=== PATIENT | male | born 1990 | race Caucasian/White ===

== ENCOUNTER 2016-10-13 13:39 | Emergency (ER) | payer BC, OTHER ==
[~2016-10-13] VITALS: Ht 180.3 cm; Wt 110.7 kg
[~2016-10-13 13:39] MED LIST: CPR500T PO; DAPT500V IV; HYDR1TAB8 OP; METR500T PO; ONDA4TAB8 PO; OXYC-471 PO
[2016-10-13 13:54] LABS: BILIRUBIN,URINE NEGATIVE (NEGATIVE); KETONES,URINE NEGATIVE (NEGATIVE); LEUKOCYTE ESTERASE ,URINE NEGATIVE (NEGATIVE); NITRITE,URINE NEGATIVE (NEGATIVE); PH,URINE 6 (5-9); PROTEIN,URINE NEGATIVE (NEGATIVE); UROBILINOGEN,URINE NORMAL (NORMAL)
[2016-10-13] MEDS ORDERED: NS IV 1000 ML 1,000 ML IV ONE (14:04)
--- NOTE | 2016-10-13 14:11 | ED GU-Male ---
General Chief Complaint: -Male Stated Complaint: LEFT FLANK PAIN Nursing Triage Note: PT STATES LT FLANK PAIN RADIATING TO HIS LT TESTICLE. PAIN STARTED 0800 TADAY, NO PAIN ON URINATION. HX OF CHRONIC KIDNEY DISEASE AND KIDNEY STONES. STATES URINATING BLOOD A COUPLE WEEKS AGO AND AGINN YESTERDAY. Source: patient Exam Limitations: no limitations History of Present Illness Time seen by provider: 13:55 Initial Comments Here with pain to the left flank radiating towards his left testicle. Denies testicular swelling or dysuria. Does note that he had some blood in his urine couple weeks ago and again yesterday. Reports fever of 101 today. Timing/Duration: week, getting worse Severity/Quality: moderate, sharp Location: left flank Radiation: groin, scrotal Activities at Onset: none Prior Genitourinary Problems: none Associated Symptoms: No abdominal pain, No dysuria, fever/chillsNo lumps, No nausea/vomiting, No swelling, No urinary frequency Allergies and Home Medications Allergies Coded Allergies: No Known Drug Allergies (Unverified , 05/06/11) Constitutional: see HPINo chills, No fever EENTM: no symptoms reported Respiratory: no symptoms reported Cardiovascular: no symptoms reported Gastrointestinal: see HPINo nausea, No vomiting Genitourinary: see HPI flank pain hematuria pain Musculoskeletal: no symptoms reported Skin: no symptoms reported All Other Systemes Reviewed Negative Unless Noted: Yes Past Gnpvtgf-Dtbjmn-Swkctg Hx Patient Social History Alcohol Use: Denies Use Recreational Drug Use: No Smoking Status: Never a Smoker Former Smoker/When Quit: Nov 10, 2014 Recent Foreign Travel: No Contact w/Someone Who Travel: No Recent Infectious Disease Expo: No Recent Hopitalizations: No Surgeries HX Surgeries: No Respiratory Hx Respiratory Disorders: No Cardiovascular Hx Cardiac Disorders: No Neurological Hx Neurological Disorders: No Genitourinary Hx Genitourinary Disorders: Yes Genitourinary Disorders: Kidney Stones Gastrointestinal Hx Gastrointestinal Disorders: No Musculoskeletal Hx Musculoskeletal Disorders: No Endocrine Hx Endocrine Disorders: No HEENT HX ENT Disorders: No Cancer Hx Cancer: No Psychosocial Hx Psychiatric Problems: No Integumentary HX Skin/Integumentary Disorder: No Blood Transfusions Hx Blood Disorders: No Reviewed Nursing Assessment Reviewed/Agree w Nursing PMH: Yes Family Medical History Significant Family History: No Pertinent Family Hx Physical Exam Vital Signs Vital Sign - Last 12Hours 10/13/16 13:47 Temp 98.9 Pulse 103 Resp 20 B/P 147/88 Pulse Ox 98 O2 Delivery Room Air Capillary Refill : Less Than 3 Seconds General Appearance: WD/WN no apparent distress Neck: full range of motion supple Cardiovascular: regular rate, rhythm no murmur Respiratory: lungs clear normal breath sounds Gastrointestinal: non tender soft Male: normal genitalia no herniaNo erythema, No testicular tenderness Genital/Rectal: No blood at urethral meatus Back: normal inspection no CVA tenderness no vertebral tenderness Extremities: non-tender normal inspection Neurologic/Psychiatric: alert oriented x 3 Skin: normal color warm/dry Progress/Results/Core Measures Results/Orders Lab Results Laboratory Tests Test 10/13/16 13:45 10/13/16 14:00 Range/Units Urine Bacteria NEGATIVE /HPF Urine Bilirubin NEGATIVE NEGATIVE Urine Casts NONE /LPF Urine Clarity CLEAR Urine Color YELLOW Urine Crystals NONE /LPF Urine Culture Indicated NO Urine Glucose (UA) NEGATIVE NEGATIVE Urine Ketones NEGATIVE NEGATIVE Urine Leukocyte Esterase NEGATIVE NEGATIVE Urine Mucus NEGATIVE /LPF Urine Nitrite NEGATIVE NEGATIVE Urine Protein NEGATIVE NEGATIVE Urine RBC 0-2 /HPF Urine RBC (Auto) 3+ H NEGATIVE Urine Specific [place] 1.010 L 1.016-1.022 Urine Squamous Epithelial Cells NONE /HPF Urine Urobilinogen NORMAL NORMAL MG/DL Urine WBC NONE /HPF Urine pH 6 5-9 Alanine Aminotransferase (ALT/SGPT) 126 H 0-55 U/L Albumin 4.8 H 3.2-4.5 G/DL Alkaline Phosphatase 119 40-136 U/L Anion Gap 10 5-14 MMOL/L Aspartate Amino Transf (AST/SGOT) 46 H 5-34 U/L BUN/Creatinine Ratio 13 Basophils # (Auto) 0.0 0.0-0.1 10^3/uL Basophils (%) (Auto) 0 0-10 % Blood Urea Nitrogen 15 7-18 MG/DL Calcium Level 9.8 8.5-10.1 MG/DL Carbon Dioxide Level 24 21-32 MMOL/L Chloride Level 106 98-107 MMOL/L Creatinine 1.20 0.60-1.30 MG/DL Eosinophils # (Auto) 0.2 0.0-0.3 10^3/uL Eosinophils (%) (Auto) 2 0-10 % Estimat Glomerular Filtration Rate > 60 Glucose Level 114 H 70-105 MG/DL Hematocrit 45 40-54 % Hemoglobin 16.2 13.3-17.7 G/DL Lymphocytes # (Auto) 2.9 1.0-4.0 X 10^3 Lymphocytes (%) (Auto) 22 12-44 % Mean Corpuscular Hemoglobin 28 25-34 PG Mean Corpuscular Hemoglobin Concent 36 32-36 G/DL Mean Corpuscular Volume 77 L 80-99 FL Mean Platelet Volume 10.2 7.4-10.4 FL Monocytes # (Auto) 0.5 0.0-1.0 X 10^3 Monocytes (%) (Auto) 4 0-12 % Neutrophils # (Auto) 9.6 H 1.8-7.8 X 10^3 Neutrophils (%) (Auto) 73 42-75 % Platelet Count 262 130-400 10^3/uL Potassium Level 3.6 3.6-5.0 MMOL/L Red Blood Count 5.86 H 4.35-5.85 10^6/uL Red Cell Distribution Width 13.0 10.0-14.5 % Sodium Level 140 135-145 MMOL/L Total Bilirubin 0.8 0.1-1.0 MG/DL Total Protein 7.6 6.4-8.2 G/DL White Blood Count 13.2 H 4.3-11.0 10^3/uL My Orders Orders-DILLON ORNELAS MD Ua Culture If Indicated (10/13/16 13:48) Saline Lock/Iv-Start (10/13/16 14:04) Ns Iv 1000 Ml (Sodium Chloride 0.9%) (10/13/16 14:04) Cbc With Automated Diff (10/13/16 14:04) Comprehensive Metabolic Panel (10/13/16 14:04) Iohexol Injection (Omnipaque 350 Mg/Ml 1 (10/13/16 14:15) Ns (Ivpb) (Sodium Chloride 0.9% Ivpb Bag (10/13/16 14:15) Ct Abd/Pelvis Wo(Kidney Stone) (10/13/16 14:17) Abdomen/Kub 1view (10/13/16 14:52) Medications Given in ED Current Medications Medications Dose Ordered Sig/Tiarra Route Start Time Stop Time Status Last Admin Dose Admin Sodium Chloride 1,000 ml @ 0 mls/hr Q0M ONCE IV 10/13/16 14:04 10/13/16 14:06 DC 10/13/16 14:13 1,000 MLS/HR Vital Signs/I&O Vital Sign - Last 12Hours 10/13/16 13:47 Temp 98.9 Pulse 103 Resp 20 B/P 147/88 Pulse Ox 98 O2 Delivery Room Air Blood Pressure Mean: 107 Progress Note : Progress Note Seen and evaluated. IV, labs, UA and CT vital CT number out of pelvis kidney stone study ordered. CT due to history of previous stones and chronic kidney disease. 1441: Case discussed with Dr. Capellan. I did review all the findings and history as well as CT scan. He will see the patient in his office tomorrow at 1430. KUB ordered. We will initiate outpatient antibiotics and pain meds. All of these findings, concerns in plan of care discussed with patient who agrees with plan. Patient is currently without any significant pain. Discharge home with return precautions. Patient verbalize understanding instructions and agreement with plan. Diagnostic Imaging Diagonstic Imaging: CT Plain Films/CT/US/NM/MRI: abdomen, pelvis Comments VIA [facility]. [place], [place] NAME: ELIAS SHARMA [facility] REC#: [id number] PT STATUS: REG ER : 1990 PHYSICIAN: DILLON ORNELAS MD ADMIT DATE: 10/13/16/ER Draft Date of Exam:10/13/16 CT ABD/PELVIS WO(KIDNEY STONE) PROCEDURE: CT urinary tract, rule out kidney stone. TECHNIQUE: Multiple contiguous axial images were obtained through the abdomen and pelvis without the use of intravenous contrast. INDICATION: Hematuria. Left flank pain. COMPARISON: 05/06/2011 FINDINGS: Included views of the lung bases are clear. CT abdomen: A 5 mm calculus is identified within the proximal left ureter near the UPJ. As a result, there is mild to moderate proximal hydronephrosis. Additional bilateral nonobstructing renal calculi are also seen. No calculi are identified along the course of the right ureter. Additionally, there is no hydroureteronephrosis or other evidence of obstruction on the right. No focal renal mass-type lesions are identified on this noncontrast exam. Liver is diffusely hypodense consistent with background of hepatic steatosis. Otherwise, the liver, spleen, pancreas, and adrenal glands have an unremarkable noncontrast CT appearance. Small bowel loops are nondistended. Normal appendix is identified. There is no loculated fluid collection, free fluid or free air within the abdomen. No abnormal mesenteric or retroperitoneal adenopathy is seen. Bony structures show no acute abnormalities. CT pelvis: Urinary bladder is unopacified. No calculi are seen within the urinary bladder. There is trace free fluid within the lower pelvis. There is no loculated fluid collection or free air. No abnormal adenopathy is seen. Bony structures show no acute abnormalities. IMPRESSION: 1. 5 mm calculus at the left UPJ resulting in mild to moderate proximal hydronephrosis. 2. Multiple additional bilateral nonobstructive renal calculi. 3. Hepatic steatosis. Dictated on workstation # [id number] Dict: 10/13/16 1426 Trans: 10/13/16 1434 [id number] Interpreted by: AIMEE CRUZ Electronically signed by: Reviewed: Reviewed by Nm Diagonstic Imaging: Xray Plain Films/CT/US/NM/MRI: abdomen Comments VIA [facility]. [place], [place] NAME: ELIAS SHARMA [facility] REC#: [id number] PT STATUS: REG ER : 1990 PHYSICIAN: DILLON ORNELAS MD ADMIT DATE: 10/13/16/ER Draft Date of Exam:10/13/16 ABDOMEN/KUB 1VIEW EXAMINATION: KUB. INDICATION: Proximal left ureteric stone. FINDINGS: There is an 8 mm calcification projecting at the left transverse process of L3 level, compatible with the stone seen on concurrent CT scan. The other small stones in the kidneys are well seen. IMPRESSION: An 8 mm proximal left ureteric stone is seen. Dictated on workstation # [id number] Dict: 10/13/16 1518 Trans: 10/13/16 1525 PJE [id number] Interpreted by: YOANA HARTMANN MD Electronically signed by: Departure Impression Impression: Primary Impression: Left ureteral stone Disposition: 01 HOME, SELF-CARE Condition: Stable Departure-Patient Inst. Decision time for Depature: 15:14 Referrals: DEEPTI PERRY DO (PCP/Family) Primary Care Physician MANNY CAPELLAN MD Patient Instructions: Kidney Stones in Adults Add. Discharge Instructions: All discharge instructions reviewed with patient and/or family. Voiced understanding. Drink plenty of fluids. Follow-up with Dr. Capellan tomorrow at 1430 in his office. Take medications as directed. Return for worse pain, fever, vomiting, weakness, breathing problems or other concerns as needed. Scripts Hydrocodone/Acetaminophen (Hydrocodon-Acetaminoph 7.5-325)1 Each Tablet1 Each PO Q6H #14 TAB Prov:DILLON ORNELAS MD 10/13/16 Cephalexin 500 Mg [id number] Mg PO BID #14 TAB Ref 0 Prov:DILLON ORNELAS MD 10/13/16 Copy Copies To 1: MANNY CAPELLAN MD Copies To 2: DEEPTI PERRY TIMOTHY D MD Oct 13, 2016 14:11
[2016-10-13 14:13] LABS: BASOPHILS % (AUTO) 0 % (0-10); EOSINOPHILS # (AUTO) 0.2 10^3/uL (0.0-0.3); EOSINOPHILS % (AUTO) 2 % (0-10); LYMPHOCYTES # (AUTO) 2.9 X 10^3 (1.0-4.0); LYMPHOCYTES % (AUTO) 22 % (12-44); MEAN CORPUSCULAR HEMOGLOBIN 28 PG (25-34); MEAN CORPUSCULAR HGB CONC 36 G/DL (32-36); MEAN CORPUSCULAR VOLUME 77 FL (80-99); MEAN PLATELET VOLUME 10.2 FL (7.4-10.4); MONOCYTES # (AUTO) 0.5 X 10^3 (0.0-1.0); MONOCYTES % (AUTO) 4 % (0-12); NEUTROPHILS # (AUTO) 9.6 X 10^3 (1.8-7.8); NEUTROPHILS % (AUTO) 73 % (42-75); PLATELET COUNT 262 10^3/uL (130-400); RED BLOOD COUNT 5.86 10^6/uL (4.35-5.85); WHITE BLOOD COUNT 13.2 10^3/uL (4.3-11.0)
[2016-10-13] MEDS ORDERED: NS 100 ML (IVPB) BAG IV ONE (14:15)
[2016-10-13] MEDS ORDERED: IOHEXOL 350 MG/ML 100 ML (OMNIPAQUE 350) VIAL IV ONE (14:15)
[2016-10-13 14:32] LABS: ALANINE AMINOTRANSFERASE 126 U/L (0-55); ALBUMIN 4.8 G/DL (3.2-4.5); ANION GAP 10 MMOL/L (5-14); ASPARTATE AMINO TRANSFERASE 46 U/L (5-34); BILIRUBIN,TOTAL 0.8 MG/DL (0.1-1.0); BLOOD UREA NITROGEN 15 MG/DL (7-18); BUN/CREATININE RATIO 13; CALCIUM 9.8 MG/DL (8.5-10.1); CARBON DIOXIDE 24 MMOL/L (21-32); CHLORIDE 106 MMOL/L (98-107); GFR ESTIMATED > 60; GLUCOSE 114 MG/DL (70-105); POTASSIUM 3.6 MMOL/L (3.6-5.0); SODIUM 140 MMOL/L (135-145); TOTAL PROTEIN 7.6 G/DL (6.4-8.2)
--- NOTE | 2016-10-13 14:34 | Diagnostic Imaging Report ---
PROCEDURE: CT urinary tract, rule out kidney stone. TECHNIQUE: Multiple contiguous axial images were obtained through the abdomen and pelvis without the use of intravenous contrast. INDICATION: Hematuria. Left flank pain. COMPARISON: 05/06/2011 FINDINGS: Included views of the lung bases are clear. CT abdomen: A 5 mm calculus is identified within the proximal left ureter near the UPJ. As a result, there is mild to moderate proximal hydronephrosis. Additional bilateral nonobstructing renal calculi are also seen. No calculi are identified along the course of the right ureter. Additionally, there is no hydroureteronephrosis or other evidence of obstruction on the right. No focal renal mass-type lesions are identified on this noncontrast exam. Liver is diffusely hypodense consistent with background of hepatic steatosis. Otherwise, the liver, spleen, pancreas, and adrenal glands have an unremarkable noncontrast CT appearance. Small bowel loops are nondistended. Normal appendix is identified. There is no loculated fluid collection, free fluid or free air within the abdomen. No abnormal mesenteric or retroperitoneal adenopathy is seen. Bony structures show no acute abnormalities. CT pelvis: Urinary bladder is unopacified. No calculi are seen within the urinary bladder. There is trace free fluid within the lower pelvis. There is no loculated fluid collection or free air. No abnormal adenopathy is seen. Bony structures show no acute abnormalities. 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 IMPRESSION: 1. 5 mm calculus at the left UPJ resulting in mild to moderate proximal hydronephrosis. 2. Multiple additional bilateral nonobstructive renal calculi. 3. Hepatic steatosis. Dictated by: Dictated on workstation # [id number]
--- NOTE | 2016-10-13 15:25 | Diagnostic Imaging Report ---
EXAMINATION: KUB. INDICATION: Proximal left ureteric stone. FINDINGS: There is an 8 mm calcification projecting at the left transverse process of L3 level, compatible with the stone seen on concurrent CT scan. The other small stones in the kidneys are well seen. IMPRESSION: An 8 mm proximal left ureteric stone is seen. Dictated by: Dictated on workstation # [id number]
[2016-10-13] MEDS ORDERED: HYDR-3816 PO (15:33)
[2016-10-13] MEDS ORDERED: CEPH500T PO (15:33)
[2016-10-13 15:53] VITALS: BP 140/86
== END 2016-10-13 15:54 | disposition home or self-care (01) ==
LOC: EDUNIT# 13:39 → ER 13:42
DX: N13.2 Hydronephrosis with renal and ureteral calculous obstruction (principal); K76.0 Fatty (change of) liver, not elsewhere classified
CPT/HCPCS: 36415; 74000; 74176; 80053; 81000; 85025; 96360; 96361

== ENCOUNTER 2017-08-10 13:10 | Emergency (ER) | payer BC ==
[~2017-08-10] VITALS: Ht 182.9 cm; Wt 108.9 kg
[~2017-08-10 13:10] MED LIST changes: +CEPH500T PO; +HYDR-3816 PO
--- OUTSIDE RECORDS SUMMARY | 2017-08-10 13:14 | XMS REPORT ---
Author Author MAURICIO DURHAM [facility] eClinicalWorks Address Unknown Phone Unavailable Care Team Providers Care Pepper Picker Name Role Phone MAURICIO DURHAM CP Unavailable Allergies, Adverse Reactions, Alerts Substance Reaction Event Type N.K.D.A. Info Not Available Non Drug Allergy Problems Problem Type Condition Code Onset Dates Condition Status Assessment Right foot pain M79.671 Active Assessment Puncture wound T14.8 Active Problem Esophageal reflux 530.81 Active Assessment Blood pressure elevated without history of HTN R03.0 Active Medications Medication Code System Code Instructions Start Date End Date Status Dosage Clindamycin HCl NDC [address]-34 300 MG Orally every 8 hrs Aug 21, 2015 Aug 28, 2015 1 capsule Ibuprofen NDC 0 not defined Procedures Procedure Coding System Code Date CULTURE, BACTERIA, OTHER CPT-4 66694 Aug 21, 2015 TDAP (BOOSTRIX) CPT-4 33901 Aug 21, 2015 CULTURE BACTERIA ANAEROBIC CPT-4 70497 Aug 21, 2015 Office Visit, Est Pt., Level 4 CPT-4 85989 Aug 21, 2015 SINGLE IMMUNIZATION ADMIN CPT-4 68528 Aug 21, 2015 Vital Signs Date/Time: Aug 21, 2015 Temperature 99.9 F Weight 236 lbs Height 72 in BMI 32.00 Index Blood Pressure Diastolic 100 mmHg Blood Pressure Systolic 142 mmHg Cardiac Monitoring Heart Rate 88 bpm Results No Known Results Immunizations Vaccine Administration Date TDAP (BOOSTRIX) Aug 21, 2015 Summary Purpose eClinicalWorks Submission
--- OUTSIDE RECORDS SUMMARY | 2017-08-10 13:14 | XMS REPORT ---
Author Author MAURICIO DURHAM [facility] eClinicalWorks Address Unknown Phone Unavailable Care Team Providers Care Patent Clerk Name Role Phone MAURICIO DURHAM Unavailable Allergies No Known Allergies Problems Problem Type Condition Code Onset Dates Condition Status Assessment Right foot pain M79.671 Active Problem Esophageal reflux 530.81 Active Medications No Known Medications Procedures Procedure Coding System Code Date X-RAY EXAM OF ANKLE CPT-4 93174 Aug 22, 2015 Results No Known Results Summary Purpose eClinicalWorks Submission
--- OUTSIDE RECORDS SUMMARY | 2017-08-10 13:14 | XMS REPORT ---
Author Author TRE COTO [facility] eClinical[employer] Address Unknown Phone Unavailable Care Team Providers Care Special Agent Name Role Phone TRE COTO CP Unavailable Allergies, Adverse Reactions, Alerts Substance Reaction Event Type N.K.D.A. Info Not Available Non Drug Allergy Problems Problem Type Condition ICD-9 Code Onset Dates Condition Status Problem Acute bronchitis 466.0 Active Problem Esophageal reflux 530.81 Active Problem Influenza with other respiratory manifestations 487.1 Active Problem Colitis, enteritis, and gastroenteritis of presumed infectious origin 009.1 Active Assessment Sinusitis 473.9 Active Problem Benign neoplasm of skin, site unspecified 216.9 Active Problem Contact with or exposure to unspecified communicable disease V01.9 Active Medications Medication Code System Code Instructions Start Date End Date Status Dosage Azithromycin [facility] [address]-63 250 MG Orally Once a day 2 tablets on the first day, then 1 tablet daily for 4 days Procedures Procedure Coding System Code Date Office Visit, Est Pt., Level 3 CPT-4 53029 May 12, 2015 Vital Signs Date/Time: May 12, 2015 Temperature 98.9 F Weight 235 lbs Height 72 in BMI 31.87 Index Blood Pressure Diastolic 70 mmHg Blood Pressure Systolic 130 mmHg Cardiac Monitoring Heart Rate 78 bpm Results No Known Results Summary Purpose eClinicalWorks Submission
--- OUTSIDE RECORDS SUMMARY | 2017-08-10 13:15 | XMS REPORT ---
Author WU Smith [facility] eClinicalWorks Address Unknown Phone Unavailable Care Team Providers Care Cycling Instructor Name Role Phone WU HIDALGO CP Unavailable Allergies, Adverse Reactions, Alerts Substance Reaction Event Type N.K.D.A. Info Not Available Non Drug Allergy Problems Problem Type Condition ICD-9 Code Onset Dates Condition Status Assessment Conjunctivitis, left eye 372.30 Active Problem Esophageal reflux 530.81 Active Medications Medication Code System Code Instructions Start Date End Date Status Dosage Bbvrceuv-Ajtcmxcae-Imdstcam [facility] [address]-61 3.5-19390-4.1 Ophthalmic Four times a day May 17, 2015 1 drop into affected eye Procedures Procedure Coding System Code Date Office Visit, Est Pt., Level 3 CPT-4 17182 May 17, 2015 Vital Signs Date/Time: May 17, 2015 Temperature 98.6 F Weight 240 lbs Height 72 in BMI 32.55 Index Cardiac Monitoring Heart Rate 102 bpm Results No Known Results Summary Purpose eClinicalWorks Submission
[2017-08-10 13:27] VITALS: BP 142/87
--- NOTE | 2017-08-10 13:41 | ED Back Pain ---
General Chief Complaint: Back Problems Stated Complaint: KIDNEY PAIN Nursing Triage Note: PT REPORTS L LOW BACK PAIN. HE STATES HE HAS CHRONIC KIDNEY DX AND HX OF KIDNEY STONES. HE STATES HE HAS HAD THIS PAIN FOR A COUPLE OF MONTHS. HE REPORTS HE THOUGHT HE HAD A KIDNEY STONE AND HAS NOT PASSED IT. HE DENIES N/V OR FEVER. Nursing Sepsis Screen: No Definite Risk Source of Information: Patient Exam Limitations: No Limitations History of Present Illness Time Seen by Provider: 13:38 Initial Comments To ER with reports of left flank pain for 2-3 months. Symptoms are no worse today than they have been at any point he states he finally "just decided to get it looked at. His primary care provider is Dr. MENA but he has not seen her in several years he states. He denies nausea vomiting or fevers. He does report some intermittent dysuria. He does have a history of kidney stones on the left. He also has a history of"chronic kidney disease" who states. He also states this was secondary to septic arthritis in his ankle. Timing/Duration: Other (2-3 months) Severity: Mild Allergies and Home Medications Allergies Coded Allergies: No Known Drug Allergies (Unverified , 05/06/11) Home Medications Cephalexin 500 Mg Tablet, 500 MG PO BID, #14 Ref 0 Prescribed by: DILLON ORNELAS on 10/13/16 1533 Hydrocodone/Acetaminophen 1 Each Tablet, 1 EACH PO Q6H, #14 Prescribed by: DILLON ORNELAS on 10/13/16 1533 Constitutional: see HPI EENTM: see HPI Respiratory: no symptoms reported Cardiovascular: no symptoms reported Genitourinary: no symptoms reported Musculoskeletal: no symptoms reported Skin: no symptoms reported Psychiatric/Neurological: No Symptoms Reported Past Xaeywko-Vcgzis-Jubdha Hx Patient Social History Alcohol Use: Denies Use Recreational Drug Use: No Smoking Status: Never a Smoker 2nd Hand Smoke Exposure: No Recent Foreign Travel: No Contact w/Someone Who Travel: No Recent Infectious Disease Expo: No Recent Hopitalizations: No Physical Abuse: No Sexual Abuse: No Seasonal Allergies Seasonal Allergies: No Surgeries History of Surgeries: Yes (WISDOM TEETH) Surgeries: Orthopedic Respiratory History of Respiratory Disorde: No Cardiovascular History of Cardiac Disorders: No Neurological History of Neurological Disord: No Genitourinary History of Genitourinary Disor: Yes (CHRONIC KIDNEY DISEASE) Genitourinary Disorders: Kidney Stones Gastrointestinal History of Gastrointestinal Di: No Musculoskeletal History of Musculoskeletal Dis: No Endocrine History of Endocrine Disorders: No Cancer History of Cancer: No Psychosocial History of Psychiatric Problem: No Suicide Risk Score: 0 Integumentary History of Skin or Integumenta: No Blood Transfusions History of Blood Disorders: No Family Medical History Significant Family History: No Pertinent Family Hx Physical Exam Vital Signs Vital Sign - Last 12Hours 08/10/17 13:27 Temp 98.9 Pulse 75 Resp 16 B/P (MAP) 142/87 Pulse Ox 99 O2 Delivery Room Air Capillary Refill : Less Than 3 Seconds General Appearance: No Apparent Distress, WD/WN HEENT: PERRL/EOMI, TMs Normal Neck: Full Range of Motion, Normal Inspection Respiratory: No Accessory Muscle Use, No Respiratory Distress Gastrointestinal: Normal Bowel Sounds, Non Tender, Soft Back: CVA Tenderness (L) Extremity: Normal Capillary Refill, Normal Inspection Neurologic/Psychiatric: Alert, Oriented x3, No Motor/Sensory Deficits Skin: Normal Color, Warm/Dry Progress/Results/Core Measures Results/Orders Lab Results Laboratory Tests Test 08/10/17 13:28 08/10/17 13:45 Range/Units Urine Color YELLOW Urine Clarity CLEAR Urine pH 6 5-9 Urine Specific [place] 1.020 1.016-1.022 Urine Protein NEGATIVE NEGATIVE Urine Glucose (UA) NEGATIVE NEGATIVE Urine Ketones NEGATIVE NEGATIVE Urine Nitrite NEGATIVE NEGATIVE Urine Bilirubin NEGATIVE NEGATIVE Urine Urobilinogen NORMAL NORMAL MG/DL Urine Leukocyte Esterase NEGATIVE NEGATIVE Urine RBC (Auto) NEGATIVE NEGATIVE Urine RBC NONE /HPF Urine WBC NONE /HPF Urine Squamous Epithelial Cells RARE /HPF Urine Crystals NONE /LPF Urine Bacteria NEGATIVE /HPF Urine Casts NONE /LPF Urine Mucus NEGATIVE /LPF Urine Culture Indicated NO White Blood Count 13.5 H 4.3-11.0 10^3/uL Red Blood Count 5.71 4.35-5.85 10^6/uL Hemoglobin 15.9 13.3-17.7 G/DL Hematocrit 45 40-54 % Mean Corpuscular Volume 78 L 80-99 FL Mean Corpuscular Hemoglobin 28 25-34 PG Mean Corpuscular Hemoglobin Concent 36 32-36 G/DL Red Cell Distribution Width 13.1 10.0-14.5 % Platelet Count 249 130-400 10^3/uL Mean Platelet Volume 10.1 7.4-10.4 FL Neutrophils (%) (Auto) 60 42-75 % Lymphocytes (%) (Auto) 29 12-44 % Monocytes (%) (Auto) 8 0-12 % Eosinophils (%) (Auto) 3 0-10 % Basophils (%) (Auto) 0 0-10 % Neutrophils # (Auto) 8.1 H 1.8-7.8 X 10^3 Lymphocytes # (Auto) 4.0 1.0-4.0 X 10^3 Monocytes # (Auto) 1.0 0.0-1.0 X 10^3 Eosinophils # (Auto) 0.4 H 0.0-0.3 10^3/uL Basophils # (Auto) 0.0 0.0-0.1 10^3/uL Sodium Level 140 135-145 MMOL/L Potassium Level 4.2 3.6-5.0 MMOL/L Chloride Level 105 98-107 MMOL/L Carbon Dioxide Level 27 21-32 MMOL/L Anion Gap 8 5-14 MMOL/L Blood Urea Nitrogen 14 7-18 MG/DL Creatinine 0.99 0.60-1.30 MG/DL Estimat Glomerular Filtration Rate > 60 BUN/Creatinine Ratio 14 Glucose Level 86 70-105 MG/DL Calcium Level 10.2 H 8.5-10.1 MG/DL Total Bilirubin 0.7 0.1-1.0 MG/DL Aspartate Amino Transf (AST/SGOT) 37 H 5-34 U/L Alanine Aminotransferase (ALT/SGPT) 114 H 0-55 U/L Alkaline Phosphatase 109 40-136 U/L Total Protein 7.6 6.4-8.2 GM/DL Albumin 4.5 3.2-4.5 GM/DL My Orders Orders - TIFFANIE HORVATH FLOOR GR[employer]ER Cbc With Automated Diff (08/10/17 13:38) Comprehensive Metabolic Panel (08/10/17 13:38) Ua Culture If Indicated (08/10/17 13:38) Ct Abd/Pelvis Wo(Kidney Stone) (08/10/17 13:38) Vital Signs/I&O Vital Sign - Last 12Hours 08/10/17 13:27 Temp 98.9 Pulse 75 Resp 16 B/P (MAP) 142/87 Pulse Ox 99 O2 Delivery Room Air Blood Pressure Mean: 105 Diagnostic Imaging Diagonstic Imaging: CT Comments NAME: ELIAS SHARMA [facility] REC#: [id number] PT STATUS: REG ER : 1990 PHYSICIAN: TIFFANIE HORVATH APRN ADMIT DATE: 08/10/17/ER Draft Date of Exam:08/10/17 CT ABD/PELVIS WO(KIDNEY STONE) PROCEDURE: CT urinary tract, rule out kidney stone. TECHNIQUE: Multiple contiguous axial images were obtained through the abdomen and pelvis without the use of intravenous contrast. INDICATION: Left flank pain. FINDINGS: Lung bases are clear. There is fatty infiltration of the liver. The gallbladder is present. Spleen appears normal. Pancreas appears normal. Adrenals appear normal. There is a 1 mm calculus in the inferior pole calyx of left kidney. There are several small calculi in the right kidney in the interpolar and lower pole calyces. There is no hydronephrosis. The ureters are not dilated. Urinary bladder appears normal. The appendix appears normal. Small bowel is not dilated. Colon appears grossly normal. IMPRESSION: Bilateral nephrolithiasis but no evidence of ureteral calculus or obstruction. Hepatic steatosis. Dictated on workstation # [id number] Dict: 08/10/17 1417 Trans: 08/10/17 1425 [id number] Interpreted by: DILLON SPARKS MD Electronically signed by: Departure Impression Impression: Primary Impression: Left flank pain Disposition: 01 HOME, SELF-CARE Condition: Stable Departure-Patient Inst. Decision time for Depature: 14:27 Referrals: DEEPTI MENA DO (PCP/Family) Primary Care Physician Patient Instructions: Flank Pain Add. Discharge Instructions: 1. Follow-up with Dr. Mena. Call today to make an appointment 2. Return to ER for any concerns 3. All discharge instructions reviewed with patient and/or family. Voiced understanding. Copy Copies To 1: DEEPTI MENA PETER J APRN Aug 10, 2017 13:41
[2017-08-10 13:54] LABS: BILIRUBIN,URINE NEGATIVE (NEGATIVE); KETONES,URINE NEGATIVE (NEGATIVE); LEUKOCYTE ESTERASE ,URINE NEGATIVE (NEGATIVE); NITRITE,URINE NEGATIVE (NEGATIVE); PH,URINE 6 (5-9); PROTEIN,URINE NEGATIVE (NEGATIVE); UROBILINOGEN,URINE NORMAL (NORMAL)
[2017-08-10 13:55] LABS: BASOPHILS % (AUTO) 0 % (0-10); EOSINOPHILS # (AUTO) 0.4 10^3/uL (0.0-0.3); EOSINOPHILS % (AUTO) 3 % (0-10); LYMPHOCYTES % (AUTO) 29 % (12-44); MEAN CORPUSCULAR HEMOGLOBIN 28 PG (25-34); MEAN CORPUSCULAR HGB CONC 36 G/DL (32-36); MEAN CORPUSCULAR VOLUME 78 FL (80-99); MEAN PLATELET VOLUME 10.1 FL (7.4-10.4); MONOCYTES % (AUTO) 8 % (0-12); NEUTROPHILS # (AUTO) 8.1 X 10^3 (1.8-7.8); NEUTROPHILS % (AUTO) 60 % (42-75); PLATELET COUNT 249 10^3/uL (130-400); RED BLOOD COUNT 5.71 10^6/uL (4.35-5.85); RED CELL DISTRIBUTION WIDTH 13.1 % (10.0-14.5); WHITE BLOOD COUNT 13.5 10^3/uL (4.3-11.0)
[2017-08-10 14:12] LABS: SQUAMOUS EPITHELIAL CELL,UR RARE /HPF
[2017-08-10 14:16] LABS: ALANINE AMINOTRANSFERASE 114 U/L (0-55); ALBUMIN 4.5 GM/DL (3.2-4.5); ANION GAP 8 MMOL/L (5-14); ASPARTATE AMINO TRANSFERASE 37 U/L (5-34); BILIRUBIN,TOTAL 0.7 MG/DL (0.1-1.0); BLOOD UREA NITROGEN 14 MG/DL (7-18); BUN/CREATININE RATIO 14; CALCIUM 10.2 MG/DL (8.5-10.1); CARBON DIOXIDE 27 MMOL/L (21-32); CHLORIDE 105 MMOL/L (98-107); CREATININE SERUM 0.99 MG/DL (0.60-1.30); GFR ESTIMATED > 60; GLUCOSE 86 MG/DL (70-105); POTASSIUM 4.2 MMOL/L (3.6-5.0); SODIUM 140 MMOL/L (135-145); TOTAL PROTEIN 7.6 GM/DL (6.4-8.2)
--- NOTE | 2017-08-10 14:25 | Diagnostic Imaging Report ---
PROCEDURE: CT urinary tract, rule out kidney stone. TECHNIQUE: Multiple contiguous axial images were obtained through the abdomen and pelvis without the use of intravenous contrast. INDICATION: Left flank pain. FINDINGS: Lung bases are clear. There is fatty infiltration of the liver. The gallbladder is present. Spleen appears normal. Pancreas appears normal. Adrenals appear normal. There is a 1 mm calculus in the inferior pole calyx of left kidney. There are several small calculi in the right kidney in the interpolar and lower pole calyces. There is no hydronephrosis. The ureters are not dilated. Urinary bladder appears normal. The appendix appears normal. Small bowel is not dilated. Colon appears grossly normal. IMPRESSION: Bilateral nephrolithiasis but no evidence of ureteral calculus or obstruction. Hepatic steatosis. Dictated by: Dictated on workstation # [id number]
== END 2017-08-10 14:30 | disposition home or self-care (01) ==
LOC: EDUNIT# 13:10 → ER 13:11
DX: R10.9 Unspecified abdominal pain (principal); N18.9 Chronic kidney disease, unspecified; Z87.442 Personal history of urinary calculi
CPT/HCPCS: 36415; 74176; 80053; 81000; 85025; 99283

== ENCOUNTER → 2018-11-06 | Outpatient (CLI) | payer SELFPAY ==
[~2018-11-06] MED LIST changes: +ACET-2267 PO; +ACHD5005 PO; +HYDR-34 PO; -HYDR-3816 PO; +LEVO500T80; +SULF-222 PO
[2018-11-06 13:01] LABS: BASOPHILS % (AUTO) 0 % (0-10); EOSINOPHILS % (AUTO) 0 % (0-10); HEMATOCRIT 45 % (40-54); LYMPHOCYTES # (AUTO) 4.2 X 10^3 (1.0-4.0); LYMPHOCYTES % (AUTO) 16 % (12-44); MEAN CORPUSCULAR HEMOGLOBIN 28 PG (25-34); MEAN CORPUSCULAR HGB CONC 36 G/DL (32-36); MEAN CORPUSCULAR VOLUME 79 FL (80-99); MEAN PLATELET VOLUME 9.8 FL (7.4-10.4); MONOCYTES # (AUTO) 1.7 X 10^3 (0.0-1.0); MONOCYTES % (AUTO) 7 % (0-12); NEUTROPHILS # (AUTO) 19.8 X 10^3 (1.8-7.8); NEUTROPHILS % (AUTO) 77 % (42-75); PLATELET COUNT 224 10^3/uL (130-400); RED CELL DISTRIBUTION WIDTH 13.4 % (10.0-14.5); WHITE BLOOD COUNT 25.6 10^3/uL (4.3-11.0)
[2018-11-06 13:23] LABS: ALANINE AMINOTRANSFERASE 62 U/L (0-55); ALBUMIN 4.7 GM/DL (3.2-4.5); ALKALINE PHOSPHATASE 89 U/L (40-136); BILIRUBIN,TOTAL 2.1 MG/DL (0.1-1.0); BUN/CREATININE RATIO 9; CALCIUM 10.6 MG/DL (8.5-10.1); CARBON DIOXIDE 27 MMOL/L (21-32); CHLORIDE 102 MMOL/L (98-107); CREATININE SERUM 1.22 MG/DL (0.60-1.30); GFR ESTIMATED > 60; GLUCOSE 117 MG/DL (70-105); SODIUM 138 MMOL/L (135-145); TOTAL PROTEIN 7.8 GM/DL (6.4-8.2)
--- NOTE | 2018-11-06 13:41 | Diagnostic Imaging Report ---
INDICATION: Right knee pain and swelling. TECHNIQUE: AP, oblique, and lateral views of the right knee are obtained. FINDINGS: No fracture or acute bony abnormality is seen. There is a questionable joint effusion. Medial and lateral compartments appear unremarkable. IMPRESSION: No acute fracture or acute bony abnormality. Question joint effusion. Dictated by: Dictated on workstation # [id number]
[2018-11-06 13:49] LABS: BAND NEUTROPHILS 6 %; BASOPHILS % (MANUAL) 0 %; EOSINOPHILS % (MANUAL) 0 %; LYMPHOCYTES % (MANUAL) 20 %; MICROCYTOSIS SLIGHT; MONOCYTES % (MANUAL) 4 %; NEUTROPHILS % (MANUAL) 70 %
[2018-11-06 14:07] LABS: ERYTHROCYTE SEDIMENTATION RATE 1 MM/HR (0-15)
== END ==
LOC: RAD 12:40
PROVIDERS: ATTEND Pediatrics
DX: M25.461 Effusion, right knee (principal)
CPT/HCPCS: 36415; 73562; 80053; 85007; 85027; 85652

== ENCOUNTER 2018-11-07 10:06 | Emergency (ER) | payer OTHER ==
[~2018-11-07] VITALS: Ht 182.9 cm; Wt 108.9 kg
[~2018-11-07 10:06] MED LIST changes: -ACET-2267 PO; -ACHD5005 PO; -LEVO500T80; -SULF-222 PO
[2018-11-07] MEDS ORDERED: LEVO500T80 (10:58)
[2018-11-07] MEDS ORDERED: ACET-2267 PO (10:58)
[2018-11-07] MEDS ORDERED: NS IV 1000 ML 1,000 ML IV ONE (11:04)
[2018-11-07] MEDS ORDERED: IBUPROFEN 800 MG (MOTRIN) TAB PO STA (11:04)
--- NOTE | 2018-11-07 11:13 | ED General ---
General Chief Complaint: Lower Extremity Stated Complaint: KNEE SWELLING;PAIN Nursing Triage Note: PT PRESENTS TO ED WITH COMPLAINTS OF R KNEE PAIN, SWELLING, INTERMITTENT FEVER SINCE Tuesday11/05/18. Nursing Sepsis Screen: Possible Sepsis Risk Source of Information: Patient Exam Limitations: No Limitations (MINDI SAMUEL STUDENT) Source of Information: Patient Exam Limitations: No Limitations (DILLON ORNELAS MD) History of Present Illness Date Seen by Provider: Nov 07, 2018 Time Seen by Provider: 10:41 Initial Comments 28 y/o M presented for right knee pain and redness that started on Tuesday without injury. He was seen at urgent care yesterday and they karina labs, did an x-ray, and started him on levofloxacin. He took 1 dose of the levo yesterday. His labs came back today and showed a WBC count of 25,000 so the urgent care called him to have him come be seen at the ED. Since yesterday, the knee has had increased redness, pain, and swelling. He also had fever of 102 F and chills last night, which resolved with Tylenol but would return. He is taking 500mg Tylenol every 6 hours. He is also nauseated but denies vomiting and diarrhea. He has not eaten due to the nausea but is staying hydrated. He has had a septic right ankle 3 years ago following a trauma. Timing/Duration: 2-3 Days, Getting Worse Severity: Moderate, Severe Modifying Factors: worse with Movement Associated Systoms: No Chest Pain; Diaphoresis, Fever/Chills; No Malaise; Nausea/Vomiting; No Shortness of Air; Other (right knee swelling, redness, and pain) (MINDI SAMUEL STUDENT) Initial Comments Reports that he did have a scrape to the anterior knee just below the patella a week ago but that. Did not become inflamed. Noted that swelling and pain is worsened and then was seen yesterday. Did have labs drawn which showed an elevated white count. He was sent over here due to concerns about septic arthritis. Does have history of septic ankle at the same leg. Timing/Duration: 2-3 Days, Getting Worse Severity: Moderate, Severe Modifying Factors: improves with Immobilization, improves with Movement Associated Systoms: No Chest Pain; Nausea/Vomiting; No Shortness of Air, No Weakness (DILLON ORNELAS MD) Allergies and Home Medications Allergies Coded Allergies: No Known Drug Allergies (Unverified , 05/06/11) Home Medications Acetaminophen 500 Mg Tablet, 500 MG PO Q6H, (Reported) Hydrocodone Bit/Acetaminophen 1 Tab Tab, 1 EACH PO Q4-6HR PRN for PAIN-MODERATE Prescribed by: DILLON ORNELAS on 11/07/18 1451 Sulfamethoxazole/Trimethoprim 1 Each Tablet, 1 EACH PO BID Prescribed by: DILLON ORNELAS on 11/07/18 1451 Patient Home Medication List Home Medication List Reviewed: Yes (MINDI SAMUEL STUDENT) Home Medication List Reviewed: Yes (DILLON ORNELAS MD) Review of Systems Review of Systems Constitutional: chills, diaphoresis, fever; No malaise EENTM: no symptoms reported Respiratory: No cough, No short of breath Cardiovascular: No chest pain, No palpitations Gastrointestinal: No abdominal pain, No constipation, No diarrhea; nausea; No vomiting Genitourinary: No dysuria, No frequency Musculoskeletal: joint pain (right knee), joint swelling (right knee ); No muscle stiffness, No muscle weakness Skin: change in color (redness of the right knee); No lesions, No lumps (MINDI MCCRAY STUDENT) Constitutional: see HPI; No chills; fever EENTM: no symptoms reported Respiratory: no symptoms reported Cardiovascular: no symptoms reported Gastrointestinal: No abdominal pain, No nausea, No vomiting Genitourinary: no symptoms reported Musculoskeletal: joint pain, joint swelling, muscle pain Skin: see HPI, change in color, lesions (DILLON ORNELAS MD) All Other Systems Reviewed Negative Unless Noted: Yes (DILLON ORNELAS MD) Past Bmsgovn-Mohbge-Fhsnmr Hx Past Med/Social Hx: Reviewed Nursing Past Med/Soc Hx (MINDI SAMUEL STUDENT) Past Med/Social Hx: Reviewed Nursing Past Med/Soc Hx (DILLON ORNELAS MD) Patient Social History Alcohol Use: Denies Use Recreational Drug Use: No Smoking Status: Never a Smoker 2nd Hand Smoke Exposure: No Recent Foreign Travel: No Contact w/Someone Who Travel: No Recent Infectious Disease Expo: No Recent Hopitalizations: No Physical Abuse: No Sexual Abuse: No Mistreated: No Fear: No (MINDI SAMUEL) Seasonal Allergies Seasonal Allergies: No (MINDI SAMUEL) Past Medical History Surgeries: Yes (WISDOM TEETH, SEPTIC ANKLE JOINT) Orthopedic Respiratory: No Cardiac: No Neurological: No Genitourinary: Yes (CHRONIC KIDNEY DISEASE) Kidney Stones Gastrointestinal: No Musculoskeletal: Yes (HX OF SEPTIC ARTHRITIS IN RT ANKLE) Arthritis Endocrine: No Cancer: No Psychosocial: No Integumentary: No Blood Disorders: No (MINDI SAMUEL) Surgeries: Yes Orthopedic (DILLON ORNELAS MD) Family Medical History Reviewed Nursing Family Hx (MINDI SAMUEL) Reviewed Nursing Family Hx (DILLON ORNELAS MD) No Pertinent Family Hx (MINDI SAMUEL) Physical Exam-Suspected Sepsis Physical Exam Vital Signs Vital Signs - First Documented 11/07/18 10:14 Temp 97.3 Pulse 102 Resp 20 B/P (MAP) 147/91 (109) Pulse Ox 97 O2 Delivery Room Air (DILLON ORNELAS MD) Vital Signs Capillary Refill : Less Than 3 Seconds (MINDI SAMUEL) Blood Pressure Mean: 109 Height, Weight, BMI Height: 6'0" Weight: 240lbs. 0oz. [id number]; 34.03 BMI Method:Stated General Appearance: No Apparent Distress, WD/WN Eyes: Bilateral Eye Normal Inspection, Bilateral Eye PERRL, Bilateral Eye EOMI HEENT: PERRL/EOMI, TMs Normal, Normal ENT Inspection, Pharynx Normal Neck: Full Range of Motion, Normal Inspection, Non Tender, Supple Respiratory: Chest Non Tender, Lungs Clear, Normal Breath Sounds, No Accessory Muscle Use, No Respiratory Distress Cardiovascular: Regular Rate, Rhythm, No Edema, No Murmur, Normal Peripheral Pulses Gastrointestinal: Normal Bowel Sounds, Non Tender, Soft Back: Normal Inspection, No CVA Tenderness, No Vertebral Tenderness Extremity: Normal Capillary Refill, No Calf Tenderness, No Pedal Edema, Inflammation (of right knee), Other Neurologic/Psychiatric: Alert, Oriented x3, No Motor/Sensory Deficits, Normal Mood/Affect Skin: other (warmth and erythema right knee extending up into the medial thigh , posterior knee, and down onto anterior ramos) (RADHA-BIECHLER,MINDI K STUDENT) General Appearance: No Apparent Distress, WD/WN HEENT: PERRL/EOMI, Pharynx Normal Neck: Non Tender, Supple Respiratory: Lungs Clear, Normal Breath Sounds Cardiovascular: No Murmur, Tachycardia Gastrointestinal: Non Tender, Soft Back: Normal Inspection, No CVA Tenderness, No Vertebral Tenderness Extremity: Normal Capillary Refill, Inflammation (of right knee), Other (leg above and below the right knee is red and edematous) Neurologic/Psychiatric: Alert, Oriented x3 Skin: warm/dry, other (warmth and erythema right knee extending up into the medial thigh, posterior knee, and down onto anterior ramos. Skin marker used to do note erythema areas) (DILLON ORNELAS MD) Focused Exam Lactate Level 11/07/18 10:33: Lactic Acid Level 1.31 (DILLON ORNELAS MD) Lactic Acid Level (DILLON ORNELAS MD) Procedures/Interventions Additional Procedures: Arthrocentesis Aspirating Progress Right knee arthrocentesis is indicated due to concerns of septic arthritis of the right knee. Verbal Consent obtained after risks and benefits discussed. Prepped With Betadine and draped with sterile towels. Anesthetized with 2% lidocaine with epinephrine to joint space to the medial aspect of the right knee. Approximately 5 mL injected in area. 18-gauge needle on a 10 mL syringe used to access joint space. Aspiration done but unable to obtain synovial fluid. Attempted in 3 locations without aspiration obtained. Procedure ended without fluid aspiration. Patient tolerated procedure well with no complications although dry tap. (DILLON ORNELAS MD) Progress/Results/Core Measures Suspected Sepsis Recent Fever Within 48 Hours: Yes Infection Criteria Present: Suspected New Infection New/Unexplained Altered Menta: No Sepsis Screen: Possible Sepsis Risk SIRS Temperature:97.3 Pulse: 102 Respiratory Rate: 20 Laboratory Tests 11/07/18 10:33: White Blood Count 28.6H Blood Pressure 147 /91 Mean: 109 11/07/18 10:33: Lactic Acid Level 1.31 Laboratory Tests 11/07/18 10:33: Creatinine 1.14, INR Comment 1.1, Platelet Count 231, Total Bilirubin 1.6H (MINDI SAMUEL STUDENT) Results/Orders Lab Results Laboratory Tests Test 11/07/18 10:32 11/07/18 10:33 11/07/18 14:01 Range/Units Erythrocyte Sedimentation Rate 5 0-15 MM/HR C-Reactive Protein High Sensitivity 26.29 H 0.00-0.50 MG/DL White Blood Count 28.6 H 4.3-11.0 10^3/uL Red Blood Count 5.60 4.35-5.85 10^6/uL Hemoglobin 15.6 13.3-17.7 G/DL Hematocrit 44 40-54 % Mean Corpuscular Volume 79 L 80-99 FL Mean Corpuscular Hemoglobin 28 25-34 PG Mean Corpuscular Hemoglobin Concent 35 32-36 G/DL Red Cell Distribution Width 13.4 10.0-14.5 % Platelet Count 231 130-400 10^3/uL Mean Platelet Volume 10.8 H 7.4-10.4 FL Neutrophils (%) (Auto) 79 H 42-75 % Lymphocytes (%) (Auto) 14 12-44 % Monocytes (%) (Auto) 7 0-12 % Eosinophils (%) (Auto) 0 0-10 % Basophils (%) (Auto) 0 0-10 % Neutrophils # (Auto) 22.4 H 1.8-7.8 X 10^3 Lymphocytes # (Auto) 4.0 1.0-4.0 X 10^3 Monocytes # (Auto) 2.1 H 0.0-1.0 X 10^3 Eosinophils # (Auto) 0.0 0.0-0.3 10^3/uL Basophils # (Auto) 0.0 0.0-0.1 10^3/uL Neutrophils % (Manual) 76 % Lymphocytes % (Manual) 15 % Monocytes % (Manual) 3 % Eosinophils % (Manual) 0 % Basophils % (Manual) 0 % Band Neutrophils 6 % Blood Morphology Comment NORMAL Prothrombin Time 14.5 12.2-14.7 SEC INR Comment 1.1 0.8-1.4 Activated Partial Thromboplast Time 34 24-35 SEC Sodium Level 136 135-145 MMOL/L Potassium Level 3.9 3.6-5.0 MMOL/L Chloride Level 100 98-107 MMOL/L Carbon Dioxide Level 26 21-32 MMOL/L Anion Gap 10 5-14 MMOL/L Blood Urea Nitrogen 11 7-18 MG/DL Creatinine 1.14 0.60-1.30 MG/DL Estimat Glomerular Filtration Rate > 60 BUN/Creatinine Ratio 10 Glucose Level 103 70-105 MG/DL Lactic Acid Level 1.31 0.50-2.00 MMOL/L Calcium Level 11.0 H 8.5-10.1 MG/DL Corrected Calcium 8.5-10.1 MG/DL Total Bilirubin 1.6 H 0.1-1.0 MG/DL Aspartate Amino Transf (AST/SGOT) 17 5-34 U/L Alanine Aminotransferase (ALT/SGPT) 46 0-55 U/L Alkaline Phosphatase 83 40-136 U/L Total Protein 8.2 6.4-8.2 GM/DL Albumin 4.6 H 3.2-4.5 GM/DL Body Fluid Source SYNOVIAL Body Fluid Color YELLOW Body Fluid Appearance MKD CLDY Body Fluid WBC /uL Body Fluid RBC /uL Body Fluid Polynuclear WBCs 100 % Body Fluid Mononuclear WBCs 0 % Body Fluid Lymphocytes 0 % Body Fluid Other Cells 0 % Body Fluid Crystals NOT SEEN (DILLON ORNELAS MD) My Orders Orders - DILLON ORNELAS MD Cbc With Automated Diff (11/07/18 11:04) Comprehensive Metabolic Panel (11/07/18 11:04) Blood Culture (11/07/18 11:04) Sputum Culture (11/07/18 11:04) Urinalysis (11/07/18 11:04) Urine Culture (11/07/18 11:04) Protime With Inr (11/07/18 11:04) Partial Thromboplastin Time (11/07/18 11:04) Saline Lock/Iv-Start (11/07/18 11:04) Vital Signs Adult Sepsis Patie Q15M (11/07/18 11:04) O2 (11/07/18 11:04) Remove Rings In Anticipation O (11/07/18 11:04) Lactic Acid Analyzer (11/07/18 11:04) Saline Lock/Iv-Start (11/07/18 11:04) Ns Iv 1000 Ml (Sodium Chloride 0.9%) (11/07/18 11:04) Ibuprofen Tablet (Motrin Tablet) (11/07/18 11:04) Manual Differential (11/07/18 10:33) Lidocaine/Epi Mpf 2% 1:200,000 (Xylocain (11/07/18 12:15) Body Fluid Culture (11/07/18 12:25) Lidocaine/Epi 2% 1:100,000 (Xylocaine/Ep (11/07/18 12:24) Hs C Reactive Protein (11/07/18 12:55) Erythrocyte Sedimentation Rate (11/07/18 12:55) Body Fluid Cell Count (11/07/18 14:03) Crystals,Body Fluid (11/07/18 14:03) Fentanyl Injection (Sublimaze Injection (11/07/18 14:06) Lidocaine/Epi 2% 1:100,000 (Xylocaine/Ep (11/07/18 14:10) Sulfamethoxazole/Trimet Ds Tab (Bactrim (11/07/18 14:52) Fentanyl Injection (Sublimaze Injection (11/07/18 15:00) (DILLON ORNELAS MD) Medications Given in ED Current Medications Medications Dose Ordered Sig/Tiarra Route Start Time Stop Time Status Last Admin Dose Admin Fentanyl Citrate 75 mcg ONCE PRN IVP 11/07/18 15:00 11/07/18 14:45 75 MCG Lidocaine/ Epinephrine 20 ml STK-MED ONCE .ROUTE 11/07/18 12:24 11/07/18 12:30 DC 11/07/18 13:00 20 ML Lidocaine/ Epinephrine 20 ml STK-MED ONCE .ROUTE 11/07/18 14:10 11/07/18 14:16 DC 11/07/18 14:18 20 ML Sodium Chloride 1,000 ml @ 0 mls/hr Q0M ONCE IV 11/07/18 11:04 11/07/18 11:07 DC 11/07/18 11:15 0 MLS/HR (DILLON ORNELAS MD) Vital Signs/I&O 11/07/18 10:14 Temp 97.3 Pulse 102 Resp 20 B/P (MAP) 147/91 (109) Pulse Ox 97 O2 Delivery Room Air (DILLON ORNELAS MD) Vital Signs/I&O Capillary Refill : Less Than 3 Seconds (MINDI SAMUEL STUDENT) Blood Pressure Mean: 109 Progress Note : Progress Note Seen and evaluated the patient and agree with above except as indicated. I have directed the plan of care. Patient is here with septic arthritis right knee concerns. Labs ordered and IV fluid 1 L bolus ordered. I discussed the case with Dr. Noel. We will go forward with arthrocentesis of the right knee. Risk benefits discussed and verbal consent obtained. 1300: The knee tap did not produce any synovial fluid. I rediscussed the case with Dr. Noel. He was apparently to take the patient to go our for wash out but will see the patient in the ER and decide if this is something that he needs to take to the OR or if this appears to be more cellulitis and/or bursitis. Patient did take Levaquin by mouth yesterday and is due his dose now. We will hold pending evaluation from Dr. Noel. Findings and concerns discussed with the patient and he agrees. 1355: Dr. Noel here evaluating the patient. 1405: He did get a fair amount of purulent drainage from the prepatellar bursa and it appears to be more prepatellar bursitis. He still was to taken to the OR for wash out as this will give a much greater chance of success and healing. He discussed this with the patient who agrees. Patient will go to the OR. Fluid sent for cell count, crystals evaluation and cultures. Patient to go to the OR. 1425: Plan is changed and Dr. Noel will perform procedure in the emergency department. 1445: Patient had I&D by Dr. Noel in the department. Wound is packed. We'll initiate Bactrim DS now. He'll continue his Levaquin. Cultures will be followed by a Dr. Noel. We will set up outpatient wound care appointment. (DILLON ORNELAS MD) Departure Communication (Admissions) Time/Spoke to Consulting Phy: 14:05 (DILLON ORNELAS MD) Impression Primary Impression: Cellulitis of right knee Additional Impression: Septic prepatellar bursitis of right knee Disposition: 01 HOME, SELF-CARE Condition: Stable Departure-Patient Inst. Decision time for Depature: 14:49 (DILLON ORNELAS MD) Referrals: TIFFANIE NOEL MD, MICHAEL G MD NO,LOCAL PHYSICIAN (PCP) Primary Care Physician Patient Instructions: Cellulitis (Skin Infection), Adult (DC), Bursitis (DC) Add. Discharge Instructions: All discharge instructions reviewed with patient and/or family. Voiced understanding. Continue Levaquin as previously prescribed. Take the Bactrim DS as prescribed. You may continue Tylenol/acetaminophen 1000 mg every 6-8 hours or the prescribed pain medicine but do not take both at the same time as they both have Tylenol/acetaminophen in them. Follow-up with wound care as scheduled. Keep wound clean and dry. You may change dressing top if it becomes soiled but otherwise following care instructions. Follow-up with Dr. Noel in one week for recheck and further evaluation. Call his office for appointment. Return for worse pain, increasing redness or swelling, fevers, weakness, breathing problems or other concerns as needed. You do have follow-up at the wound care clinic on 11/10/18 at 1330. Please keep that appointment. You can check in at Hospital registration and they will get you to the wound care clinic which is located in the main hospital on the first floor. Scripts Hydrocodone Bit/Acetaminophen (Hydrocodone/Acetaminophen 5/325mg Tablet) 1 Tab Tab 1 EACH PO Q4-6HR PRN for PAIN-MODERATE MDD 10, #10 TAB Prov: DILLON ORNELAS MD 11/07/18 Sulfamethoxazole/Trimethoprim (Sulfamethoxazole-Tmp Ds Tablet) 1 Each Tablet 1 EACH PO BID, #20 TAB 0 Refills Prov: DILLON ORNELAS MD 11/07/18 Copy Copies To 1: TIFFANIE NOEL MDMINDI MORALES STUDENT Nov 07, 2018 11:13 DILLON ORNELAS MD Nov 07, 2018 13:10
[2018-11-07 11:16] LABS: BASOPHILS % (AUTO) 0 % (0-10); EOSINOPHILS % (AUTO) 0 % (0-10); HEMATOCRIT 44 % (40-54); HEMOGLOBIN 15.6 G/DL (13.3-17.7); LYMPHOCYTES % (AUTO) 14 % (12-44); MEAN CORPUSCULAR HEMOGLOBIN 28 PG (25-34); MEAN CORPUSCULAR HGB CONC 35 G/DL (32-36); MEAN CORPUSCULAR VOLUME 79 FL (80-99); MEAN PLATELET VOLUME 10.8 FL (7.4-10.4); MONOCYTES # (AUTO) 2.1 X 10^3 (0.0-1.0); MONOCYTES % (AUTO) 7 % (0-12); NEUTROPHILS # (AUTO) 22.4 X 10^3 (1.8-7.8); NEUTROPHILS % (AUTO) 79 % (42-75); PLATELET COUNT 231 10^3/uL (130-400); RED CELL DISTRIBUTION WIDTH 13.4 % (10.0-14.5); WHITE BLOOD COUNT 28.6 10^3/uL (4.3-11.0)
[2018-11-07 11:29] LABS: INR 1.1 (0.8-1.4); PROTHROMBIN TIME PATIENT 14.5 SEC (12.2-14.7)
[2018-11-07 11:30] LABS: ALANINE AMINOTRANSFERASE 46 U/L (0-55); ALBUMIN 4.6 GM/DL (3.2-4.5); ALKALINE PHOSPHATASE 83 U/L (40-136); BILIRUBIN,TOTAL 1.6 MG/DL (0.1-1.0); BUN/CREATININE RATIO 10; CARBON DIOXIDE 26 MMOL/L (21-32); CHLORIDE 100 MMOL/L (98-107); CREATININE SERUM 1.14 MG/DL (0.60-1.30); GFR ESTIMATED > 60; GLUCOSE 103 MG/DL (70-105); POTASSIUM 3.9 MMOL/L (3.6-5.0); SODIUM 136 MMOL/L (135-145); TOTAL PROTEIN 8.2 GM/DL (6.4-8.2)
[2018-11-07 11:57] LABS: BAND NEUTROPHILS 6 %; BASOPHILS % (MANUAL) 0 %; EOSINOPHILS % (MANUAL) 0 %; LYMPHOCYTES % (MANUAL) 15 %; MONOCYTES % (MANUAL) 3 %; NEUTROPHILS % (MANUAL) 76 %; RBC MORPH NORMAL
[2018-11-07] MEDS ORDERED: LIDOCAINE/EPI 2% 1:200,00 (XYLOCAINE) 10 ML VIAL INJ ONE (12:15)
[2018-11-07] MEDS ORDERED: LIDOCAINE/EPI 2% 1:100,00 (XYLOCAINE) 20 ML VIAL ONE ×2 (12:24→14:10)
--- NOTE | 2018-11-07 14:00 | NUR ---
DR ABAD IN ROOM WITH PT AT THIS TIME
[2018-11-07] MEDS ORDERED: fentaNYL INJECTION 100 MCG/2 ML AMP IVP STA (14:06)
[2018-11-07] MEDS ORDERED: ACHD5005 PO (14:51)
[2018-11-07] MEDS ORDERED: SULF-222 PO (14:51)
[2018-11-07] MEDS ORDERED: TRIM/SULFAMETH 160/800 (SEPTRA DS) TAB PO STA (14:52)
--- NOTE | 2018-11-07 14:54 | NUR ---
WOUND CARE CONTACTED FOR PT FOLLOW UP AT THIS TIME
[2018-11-07] MEDS ORDERED: fentaNYL INJECTION 100 MCG/2 ML AMP IVP PRN (15:00)
[2018-11-07 15:08] LABS: BODY FLUID COLOR YELLOW; BODY FLUID SOURCE SYNOVIAL
[2018-11-07 15:09] LABS: BODY FLUID APPEARENCE MKD CLDY
[2018-11-07 15:16] LABS: BF OTHER CELLS 0 %; LYMPHOCYTES,BODY FLUID 0 %
[2018-11-07 15:53] VITALS: BP 122/90
--- NOTE | 2018-11-07 17:49 | CONSULTATION REPORT ---
DATE OF SERVICE: 11/07/2018 ORTHOPEDIC CONSULTATION CHIEF COMPLAINT: Severe right knee swelling and pain. HISTORY OF PRESENT ILLNESS: The patient is a 28-year-old male has a history of progressive erythema, redness, cellulitis around his knee, worsening pain and fever present for the last several days, seen in urgent care and started on antibiotics yesterday, but symptoms were worsening here for evaluation. Denies any other complaints. Does have a remote history of a septic joint several years ago from being poked with something in the ankle that and appearing septic. PAST MEDICAL HISTORY: Otherwise, unremarkable. PAST SURGICAL HISTORY: Ankle surgery for his septic joint. MEDICATIONS: Levaquin just started recently. ALLERGIES: None. SOCIAL HISTORY: Denies tobacco or alcohol use. 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 FAMILY HISTORY: Noncontributory. REVIEW OF SYSTEMS: Denies nausea, vomiting. No other generalized complaints. He does have some fever and chills, but denies other symptoms. PHYSICAL EXAMINATION: VITAL SIGNS: Please see nurse's notes for vital signs. GENERAL: Well Developed, pleasant male in no acute distress, cooperative. EXTREMITIES: Bilateral upper and left lower extremity failed to demonstrate any swelling, deformity or signs of any trauma. Right lower extremity reveals marked erythema around the knee up into the thigh and calf. There is a swelling about the knee, difficult to ascertain whether it is intraarticular or prepatellar with her swelling in both locations. After verbal consent was obtained, lateral portals were anesthetized with local anesthetic and then aspiration of the knee initially and then the prepatellar bursa demonstrated a purulent material from the prepatellar bursa. LABORATORY STUDIES: Show white count greater than 20. Imp: Septic Prepatellar Bursitis, Right Knee. Plan: After risks, benefits, alternatives discussed, the patient elected for irrigation and debridement in the Emergency Department. Due to his insurance status and trying not to raise any additional operative bills. ED PROCEDURE: After sterile prep and drape of the Right Knee was performed. Local anesthetic was instilled directly anteriorly and then sharp incision down to the prepatellar bursa was performed. Copious irrigation of sterile saline through the knee through the prepatellar bursa was performed. Septations were broken up and once it was satisfactorily debrided, it was packed with iodoform gauze and a sterile dressing was applied. The patient tolerated procedure well and care was turned back over to the Emergency Department. He will follow up as an outpatient on Bactrim and Levaquin. Premedication was given and also seen wound care for instructions on dressing changes. Job ID: [id number] DocumentID: [id number] Dictated Date: 11/07/2018 14:59:20 Wrapper And Preserver Date: 11/07/2018 17:48:24 Dictated By: TIFFANIE ABAD MD MTDD
== END 2018-11-07 15:53 | disposition home or self-care (01) ==
LOC: EDUNIT# 10:06 → ER 10:07
DX: L03.115 Cellulitis of right lower limb (principal); M70.51 Other bursitis of knee, right knee; N18.9 Chronic kidney disease, unspecified; Z98.890 Other specified postprocedural states; Z87.442 Personal history of urinary calculi
CPT/HCPCS: 10061; 20610; 36415; 80053; 83605; 85007; 85027; 85610; 85652; 85730; 86141; 87040; 87070; 87077; 87205; 89051; 89060

== ENCOUNTER → 2018-11-10 | Outpatient (CLI) | payer OTHER ==
[~2018-11-10] MED LIST changes: +ACET-2267 PO; +ACHD5005 PO; +LEVO500T80; +SULF-222 PO
== END ==
LOC: WOUNDCARE 09:24
PROVIDERS: ATTEND Surgery
DX: M71.161 Other infective bursitis, right knee (principal); L97.815 Non-pressure chronic ulcer of other part of right lower leg with muscle involvement without evidence of necrosis
CPT/HCPCS: 11042